=== PATIENT | female | born 1965 | race Two or more races ===

== ENCOUNTER 2020-05-16 06:58 | Emergency (ER) | payer MEDICAID ==
[~2020-05-16] VITALS: Ht 160 cm; Wt 63.5 kg
[2020-05-16] MEDS ORDERED: KETOROLAC TROMETH 60MG/2ML VIAL IM ONE (07:45)
[2020-05-16 12:28] VITALS: BP 127/61
== END 2020-05-16 12:24 | disposition home or self-care (01) ==
LOC: ER 06:58 → EDBD 06:58 → ER 12:24
DX: S92.312A Displaced fracture of first metatarsal bone, left foot, initial encounter for closed fracture (principal); S92.322A Displaced fracture of second metatarsal bone, left foot, initial encounter for closed fracture; X58.XXXA Exposure to other specified factors, initial encounter; Y93.89 Activity, other specified; Y92.89 Other specified places as the place of occurrence of the external cause; Y99.8 Other external cause status
CPT/HCPCS: 29515; 73700; J1885